=== PATIENT | female | born 1975 | race Hispanic/Latino ===

== ENCOUNTER 2017-02-28 19:17 | Emergency (ER) | payer MEDICAID ==
--- NOTE | 2017-02-28 19:39 | EDM.PDOC ---
ED HPI GENERAL MEDICAL PROBLEM - General Chief Complaint: Upper Extremity Injury/Pain Stated Complaint: HAVING PAIN IN BOTH WRISTS AND HAND Time Seen by Provider: 02/28/17 19:38 - History of Present Illness INITIAL COMMENTS - FREE TEXT/NARRATIVE: 41-year-old female has a 2 day history of worsening wrist and hand pain. Patient denies any trauma she did work in awful lot at work she cannot recall any specific overwork injury that aggravates this. She has not fallen or tripped or done any heavy lifting. She denies any other problems she is not having any neck pain she does not have pain comes down from her neck into her arms or vice versa. She gets some vague generalized tingling in her hands but these seem to be globally across the hand she cannot differentiate if it's worse on the radial aspect of the ulnar aspect. bilateral forearms/wrists Pain Score (Numeric/FACES): 7 - Related Data Allergies Allergy/AdvReac Type Severity Reaction Status Date / Time No Known Allergies Allergy Verified 02/28/17 19:34 Home Meds: Home Meds Naproxen [Naprosyn] 500 mg PO Q12HR #20 tablet 02/28/17 [Rx] Omeprazole Magnesium [Prilosec Otc] 20 mg PO DAILY 02/28/17 [History] Past Medical History - Past Health History Medical/Surgical History: Denies Medical/Surgical History - Past Surgical History Female Surgical History: Reports: Section Social & Family History - Family History Family Medical History: Noncontributory - Tobacco Use Smoking Status *Q: Never Smoker - Caffeine Use Caffeine Use: Reports: Coffee, Soda - Recreational Drug Use Recreational Drug Use: No Review of Systems - Review of Systems Review Of Systems: See Below Constitutional: Reports: No Symptoms Eyes: Reports: No Symptoms Ears: Reports: No Symptoms Nose: Reports: No Symptoms Mouth/Throat: Reports: No Symptoms Respiratory: Reports: Cough Cardiovascular: Reports: No Symptoms GI/Abdominal: Reports: No Symptoms ED EXAM, GENERAL - Physical Exam Exam: See Below Exam Limited By: No Limitations General Appearance: Alert, No Apparent Distress Head: Atraumatic, Normocephalic Neck: Normal Inspection, Supple, Non-Tender, Full Range of Motion. No: Lymphadenopathy (L), Lymphadenopathy (R) Respiratory/Chest: No Respiratory Distress, Lungs Clear, Normal Breath Sounds Cardiovascular: Normal Peripheral Pulses, Regular Rate, Rhythm, No Edema Back Exam: Normal Inspection. No: CVA Tenderness (L), CVA Tenderness (R), Muscle Spasm, Vertebral Tenderness Extremities: Normal Inspection, No Pedal Edema, Other (Upper extremities are examined in detail neurovascular status of the hand is entirely normal Tinel's sign is negative bilaterally Phalen's and reverse Phalen's is negative bilaterally patient has vague discomfort almost like a mild tendinitis using various muscle groups.) Course - Vital Signs Last Recorded V/S: Last Vital Signs Temp 36.6 C 02/28/17 19:28 Pulse 71 02/28/17 19:28 Resp 18 02/28/17 19:28 BP 152/87 H 02/28/17 19:28 Pulse Ox 99 02/28/17 19:28 - Orders/Labs/Meds Orders: Active Orders 24 hr Category Date Time Status Durable Medical Equipment for Discharge [DME for Oth 02/28/17 19:50 Ordered Discharge] [COMM] Stat - Re-Assessments/Exams Free Text/Narrative Re-Assessment/Exam: 02/28/17 19:58 Exam is somewhat confusing Tinel's sign is negative bilaterally reversed Phalen' s and Phalen's is negative bilaterally. She has point tenderness over the ulnar nerve at the elbow bilaterally but does not seem to have tenderness or numbness the patient cannot recall a specific overuse or specific lifting injury that may have caused this. 02/28/17 20:00 Patient was placed in forearm splints that immobilize the wrist and she feels much better. These will be continued she'll be started on Naprosyn. Departure - Departure Time of Disposition: 20:04 Disposition: Home, Self-Care 01 Clinical Impression: Wrist tendonitis, Hand tendinitis - Discharge Information Prescriptions: Naproxen [Naprosyn] 500 mg PO Q12HR #20 tablet Referrals: Genoveva Samuel PA-C [Primary Care Provider] - Forms: ED Department Discharge - My Orders Last 24 Hours: My Active Orders 02/28/17 19:50 Durable Medical Equipment for Discharge [DME for Discharge] [COMM] Stat - Assessment/Plan Last 24 Hours: My Active Orders 02/28/17 19:50 Durable Medical Equipment for Discharge [DME for Discharge] [COMM] Stat
== END 2017-02-28 20:15 | disposition home or self-care (01) ==
LOC: JD.ED 19:17
DX: M65.841 Other synovitis and tenosynovitis, right hand (principal); M65.842 Other synovitis and tenosynovitis, left hand; Z79.899 Other long term (current) drug therapy
CPT/HCPCS: 99283

== ENCOUNTER 2017-03-31 08:59 | Day surgery (SDC) | payer MEDICAID ==
[~2017-03-31 08:59] MED LIST: Lactated Ringers 1,000 ML IV SCH; Lidocaine 1%/Sod Bicarbonate in NS 8.4% 1 ML Syringe IV PRN; Sodium Chloride 0.9% 10 ML Syringe FLUSH PRN
--- NOTE | 2017-03-31 09:25 | PCM.PREANE ---
Preanesthetic Assessment - Anesthesia/Transfusion/Family Hx Anesthesia History: Prior Anesthesia Without Reaction Family History of Anesthesia Reaction: No Transfusion History: No Prior Transfusion(s) - Review of Systems General: No Symptoms Pulmonary: No Symptoms Cardiovascular: No Symptoms Gastrointestinal: No Symptoms Neurological: No Symptoms Other: Reports: None - Physical Assessment NPO Status Date: 03/30/17 NPO Status Time: 00:00 Pulse: 72 O2 Sat by Pulse Oximetry: 94 Respiratory Rate: 16 Blood Pressure: 129/72 Temperature: 36.2 C Height: 1.63 m Weight: 110.994 kg ASA Class: 2 Mental Status: Alert & Oriented x3 Airway Class: Mallampati = 1 Dentition: Reports: Normal Dentition Thyro-Mental Finger Breadths: 3 Mouth Opening Finger Breadths: 3 ROM/Head Extension: Full Lungs: Clear to Auscultation, Normal Respiratory Effort Cardiovascular: Regular Rate, Regular Rhythm - Lab Values: Laboratory Last Values Urine HCG, Qual Negative (NEGATIVE) 03/31/17 09:05 - Allergies Allergies/Adverse Reactions: Allergies Allergy/AdvReac Type Severity Reaction Status Date / Time No Known Allergies Allergy Verified 03/30/17 14:48 - Acknowledgements Anesthesia Type Planned: General Anesthesia Pt an Appropriate Candidate for the Planned Anesthesia: Yes Alternatives and Risks of Anesthesia Discussed w Pt/Guardian: Yes Pt/Guardian Understands and Agrees with Anesthesia Plan: Yes PreAnesthesia Questionnaire - Past Health History Medical/Surgical History: Denies Medical/Surgical History HEENT History: Reports: Impaired Vision, Other (See Below) Other HEENT History: pharyngitis, wears glasses Cardiovascular History: Reports: None Respiratory History: Reports: Other (See Below) Other Respiratory History: acute bronchitits Gastrointestinal History: Reports: None Genitourinary History: Reports: None 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) Other OB/BYN History: irregular menses, menorrhagia, metrohaggia, vaginal discharge Musculoskeletal History: Reports: Other (See Below) Other Musculoskeletal History: bilateral carpal tunnel syndrome, plantar fasciitis, wrist pain Neurological History: Reports: Other (See Below) Other Neuro History: finger numbness Psychiatric History: Reports: Depression Endocrine/Metabolic History: Reports: None Hematologic History: Reports: Anemia Immunologic History: Reports: None Oncologic (Cancer) History: Reports: None Dermatologic History: Reports: Other (See Below) Other Dermatologic History: candidal dermatitis, pruritis, skin tag, neck nodule - Past Surgical History Head Surgeries/Procedures: Reports: None HEENT Surgical History: Reports: None Cardiovascular Surgical History: Reports: None Respiratory Surgical History: Reports: None GI Surgical History: Reports: None Female Surgical History: Reports: Section, Tubal Ligation Male Surgical History: Reports: None Endocrine Surgical History: Reports: None Oncologic Surgical History: Reports: None - SUBSTANCE USE Smoking Status *Q: Former Smoker Tobacco Use Within Last Twelve Months: No Second Hand Smoke Exposure: No Days Per Week of Alcohol Use: 0 Number of Drinks Per Day: 1 Total Drinks Per Week: 0 Recreational Drug Use History: No - HOME MEDS Home Medications: Home Meds Ascorbate Calcium [Vitamin C] 500 mg PO DAILY 03/30/17 [History] Clindamycin Phos/Benzoyl Perox [Clinda-Benzoyl Perox 1-5% Pump] 1 dose TOP TID 03/30/17 [History] Ferrous Sulfate [Iron] 325 mg PO BID 03/30/17 [History] Hydrocodone/Acetaminophen [Hydrocodon-Acetaminophen 5-325] 1 tab PO Q6H PRN 10/07 [History] Naproxen [Naproxen] 500 mg PO BID PRN 03/30/17 [History] Pyridoxine HCl [Vitamin B-6] 100 mg PO DAILY 03/30/17 [History] hydrOXYzine HCl [hydrOXYzine] 25 mg PO QID PRN 03/30/17 [History] - CURRENT (IN HOUSE) MEDS Current Meds: Current Medications Lactated Ringer's (Ringers, Lactated) 1,000 mls @ 125 mls/hr IV ASDIRECTED CASTILLO Stop: 03/31/17 23:00 Lidocaine/Sodium Bicarbonate (Buffered Lidocaine 1% In Ns 8.4%) 0.25 ml IV ONETIME PRN PRN Reason: Prior to IV Start Stop: 03/31/17 18:00 Sodium Chloride (Saline Flush) 10 ml FLUSH ASDIRECTED PRN PRN Reason: Keep Vein Open Stop: 03/31/17 18:00
[2017-03-31] MEDS ORDERED: Ondansetron 4 MG/2 ML SDV ONE (09:38)
[2017-03-31] MEDS ORDERED: fentaNYL 100 MCG/2 ML SDV ONE (09:39)
[2017-03-31] MEDS ORDERED: Lidocaine 1% 4 ML ONE (09:39)
[2017-03-31] MEDS ORDERED: Propofol 200 MG/20 ML SDV ONE (09:39)
[2017-03-31] MEDS ORDERED: Midazolam 1 MG/ML 2 ML SDV ONE (09:39)
[2017-03-31] MEDS ORDERED: ceFAZolin 1 GM Vial ONE (09:40)
[2017-03-31] MEDS ORDERED: Lactated Ringers 1,000 ML ONE (10:06)
[2017-03-31] MEDS ORDERED: Ketorolac 30 MG/ML SDV ONE (10:11)
--- NOTE | 2017-03-31 10:32 | PCM.OPNOTE ---
- General Post-Op/Procedure Note Date of Surgery/Procedure: 03/31/17 Operative Procedure(s): Dilatation and curettage hysteroscopy 96224. Endometrial ablation 50115 Pre Op Diagnosis: Menorrhagia, metromenorrhagia, irregular menses Post-Op Diagnosis: Same Anesthesia Technique: General ET Tube Primary Surgeon: Uche Poon Anesthesia Provider: Casey Mccray Shipyard Painter Apprentice: Arnaldo North (PAS) Fluid Replacement, Intraop: 1,000 Output, Urine Amount: 0 EBL in mLs: 10 Drain/Tube Comments:: None Complications: None Condition: Good Free Text/Narrative:: Patient was transported to operating room #1 in [facility]. Placed under general anesthesia with endotracheal intubation the low dorsal lithotomy position. SCDs in place and functioning prior surgery. Ancef 2 g given intravenously prior surgery. Timeout performed confirming name, date of , procedure as D&C hysteroscopy and endometrial ablation. Examination under anesthesia revealed anterior uterus no adnexal masses uterus upper limits normal-sized to 4 weeks size. Uterus sounded to 9 cm. Endometrial cavity length 6.5-7 cm. Hysteroscopy performed and significant amount of tissue was indicated at hysteroscopy dilatation and curettage performed and approximately 3-5 mL of tissue obtained sent to pathology for tissue evaluation. The ablation was performed with length of the cavity 6.5 cm with 4.7 cm power 168 length of burn 49 seconds. Reinspection of the endometrial cavity after the ablation showed normal amount of charring with one or 2 areas of pinker tissue indicating less degree of burn patient may continue to have some bleeding after the ablation, depending upon amount of bleeding that she has as indication of further additional surgery be indicated. Patient was transported postanesthesia care unit in satisfactory condition. No blood transfusions were required. One sheet of images taken image 001 shows the right cornua image 002 shows left cornea image 003 post ablation central portion of the endometrial cavity image 004 is blurred that tissue blocking the camera image 005 shows the fundus of the endometrial cavity image 006 shows area of slightly less charring consistent with possible continued bleeding post-ablation the amount will be determined. I talked with her and all questions answered voiced satisfaction.
[2017-03-31] MEDS ORDERED: fentaNYL 100 MCG/2 ML SDV IVPUSH PRN (10:35)
[2017-03-31] MEDS ORDERED: HYDROmorphone 0.5 MG/0.5 ML Syringe IVPUSH PRN (10:35)
--- NOTE | 2017-03-31 10:37 | PCM.POSTAN ---
POST ANESTHESIA ASSESSMENT - MENTAL STATUS Mental Status: Alert, Oriented - VITAL SIGNS Pulse Rate: 86 SaO2: 97 Resp Rate: 20 Blood Pressure: 116/66 Temperature: 36.1 C - RESPIRATORY Respiratory Status: Respiratory Rate WNL, Airway Patent, O2 Saturation Stable, Supplemental Oxygen - CARDIOVASCULAR CV Status: Pulse Rate WNL, Blood Pressure Stable - GASTROINTESTINAL GI Status: No Symptoms - PAIN Pain Score: 0 - POST OP HYDRATION Hydration Status: Adequate & Stable - OBSERVATIONS Free Text/Narrative:: no anesthesia complications noted
== END 2017-03-31 12:20 | disposition home or self-care (01) ==
LOC: JD.SDS 08:59
PROVIDERS: ATTEND Obstetrics & Gynecology
DX: N92.1 Excessive and frequent menstruation with irregular cycle (principal); N92.0 Excessive and frequent menstruation with regular cycle; D64.9 Anemia, unspecified; B37.2 Candidiasis of skin and nail; F32.9 Major depressive disorder, single episode, unspecified; R22.1 Localized swelling, mass and lump, neck; L29.9 Pruritus, unspecified; L91.8 Other hypertrophic disorders of the skin; N89.8 Other specified noninflammatory disorders of vagina; Z98.51 Tubal ligation status; Z79.899 Other long term (current) drug therapy; Z87.891 Personal history of nicotine dependence
CPT/HCPCS: 36415; 58563; 81025; 85025; J0690; J1885; J2250; J2405; J3010; J7120; 00952; J2001; J2704

== ENCOUNTER 2020-11-20 08:11 | Day surgery (SDC) | payer BC ==
--- NOTE | 2020-10-27 09:09 | PCM.EKG ---
#1 Interpretation EKG Date: 10/22/20 Time: 16:00 Rhythm: NSR Rate (Beats/Min): 64 [place]: Normal P-Wave: Present QRS: Normal ST-T: Other (Nonspecific T wave flattening in lead III and aVF) QT: Normal EKG Interpretation Comments: Essentially normal ECG
[~2020-11-20 08:11] MED LIST changes: +Bupivacaine 0.5% 30 ML SDV ONE; +Lidocaine 1% with EPINEPHrine 1:100,000 10 ML MDV ONE; +Lidocaine 1%/Sod Bicarbonate in NS 8.4% 1 ML Syringe IDERM PRN; -Lidocaine 1%/Sod Bicarbonate in NS 8.4% 1 ML Syringe IV PRN; +Sodium Chloride 0.9% 50 ML SDV ONE
--- NOTE | 2020-11-20 08:31 | PCM.PREANE ---
Preanesthetic Assessment - Procedure Proposed Procedure: Laparoscopic assisted vaginal hysterectomy with bilateral salpingectomy, possible total abdominal hysterectomy - Anesthesia/Transfusion/Family Hx Anesthesia History: Prior Anesthesia Without Reaction Family History of Anesthesia Reaction: No Transfusion History: No Prior Transfusion(s) - Review of Systems General: No Symptoms Pulmonary: No Symptoms, Other (Patient 10/29/20 was diagnosed with penumonia and took a z-pack at that time. Lungs decreased in all coates due to obesity but lungs sound clear. Pre-op albuterol neb given. Patient stated she has seasonal allergies occasionally. ) Cardiovascular: No Symptoms Gastrointestinal: No Symptoms Neurological: Numbness (bilateral fingers), Tingling Other: Reports: Easy Bruising - Physical Assessment NPO Status Date: 11/19/20 NPO Status Time: 20:30 Vital Signs: 130/71 HR 84 RR 18 99% RA 97.8 Height: 1.63 m Weight: 106.9 kg ASA Class: 3 Mental Status: Alert & Oriented x3 Airway Class: Mallampati = 3 Dentition: Reports: Missing Tooth/Teeth Thyro-Mental Finger Breadths: 3 Mouth Opening Finger Breadths: 3 ROM/Head Extension: Full Lungs: Clear to Auscultation, Normal Respiratory Effort Cardiovascular: Regular Rate, Regular Rhythm, No Murmurs - Lab Values: Labs reviewed and okay to proceed with procedure - Imaging/EKG Impressions: 10/29/20: indication cough, nothing acute seen on chest x-ray EKG reviewed NSR HR 64, see report - Allergies Allergies/Adverse Reactions: Allergies Allergy/AdvReac Type Severity Reaction Status Date / Time No Known Allergies Allergy Verified 03/31/17 09:45 - Anesthesia Plan Pre-Op Medication Ordered: Other (Albuterol) - Acknowledgements Anesthesia Type Planned: General Anesthesia Pt an Appropriate Candidate for the Planned Anesthesia: Yes Alternatives and Risks of Anesthesia Discussed w Pt/Guardian: Yes Pt/Guardian Understands and Agrees with Anesthesia Plan: Yes PreAnesthesia Questionnaire - Past Health History Medical/Surgical History: Denies Medical/Surgical History HEENT History: Reports: Allergic Rhinitis, Impaired Vision, Other (See Below) Other HEENT History: pharyngitis, wears glasses Cardiovascular History: Reports: None Respiratory History: Reports: Asthma, Other (See Below) Other Respiratory History: acute bronchitits and bronchospasm; presented to clinic with cold like symptoms, started 10/27/20; chest xray showed nothing acute on 10/29/20 Gastrointestinal History: Reports: GERD Genitourinary History: Reports: None 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) Other OB/BYN History: irregular menses, menorrhagia, metrohaggia, vaginal discharge Musculoskeletal History: Reports: RA, Other (See Below) Other Musculoskeletal History: bilateral carpal tunnel syndrome, plantar fasciitis, wrist pain, chronic ankle pain Neurological History: Reports: Other (See Below) Other Neuro History: finger numbness and hands bilaterally Psychiatric History: Reports: Depression Endocrine/Metabolic History: Reports: Obesity/BMI 30+ Hematologic History: Reports: Anemia Immunologic History: Reports: None Oncologic (Cancer) History: Reports: None Dermatologic History: Reports: Other (See Below) Other Dermatologic History: candidal dermatitis, pruritis, skin tag, neck nodule - Past Surgical History Female Surgical History: Reports: Section, D&C, Endometrial Ablation, Tubal Ligation - SUBSTANCE USE Tobacco Use Status *Q: Former Tobacco User (Quit 2005) Tobacco Use Within Last Twelve Months: No Second Hand Smoke Exposure: Yes Days Per Week of Alcohol Use: 0 Number of Drinks Per Day: 0 Total Drinks Per Week: 0 Recreational Drug Use History: No - HOME MEDS Home Medications: Home Meds Ascorbate Calcium [Vitamin C] 500 mg PO DAILY 03/30/17 [History] Clindamycin Phos/Benzoyl Perox [Clindamycin-Bnz Perox 1-5% [employer] [facility] Manager] 1 dose TOP TID 03/30/17 [History] Ferrous Sulfate [Iron] 325 mg PO BID 03/30/17 [History] Hydrocodone/Acetaminophen [HYDROcodone-Acetaminophen 5-325 MG] 1 tab PO Q6H PRN 03/30/17 [History] Naproxen 500 mg PO BID PRN 03/30/17 [History] Pyridoxine HCl (Vitamin B6) [Vitamin B-6] 100 mg PO DAILY 03/30/17 [History] hydrOXYzine HCL [hydrOXYzine] 25 mg PO QID PRN 03/30/17 [History] Acetaminophen [Tylenol] 650 mg PO Q6H #50 cup 03/31/17 [Rx] Ibuprofen [Motrin] 600 mg PO Q6H PRN #50 tab 03/31/17 [Rx] - CURRENT (IN HOUSE) MEDS Current Meds: Current Medications Lactated Ringer's (Ringers, Lactated) 1,000 mls @ 125 mls/hr IV ASDIRECTED CASTILLO Stop: 11/20/20 23:00 Lidocaine/Sodium Bicarbonate (Lidocaine 1%/Sod Bicarbonate In Ns 8.4% 1 Ml Syringe) 0.25 ml IDERM ONETIME PRN PRN Reason: Prior to IV Start Stop: 11/20/20 18:00 Sodium Chloride (Sodium Chloride 0.9% 10 Ml Syringe) 10 ml FLUSH ASDIRECTED PRN PRN Reason: Keep Vein Open Stop: 11/20/20 18:00 Discontinued Medications Bupivacaine HCl (Bupivacaine 0.5% 30 Ml Sdv) Confirm Administered Dose 30 ml .ROUTE .STK-MED ONE Stop: 11/20/20 07:49 Lidocaine/Epinephrine (Lidocaine 1% With Epinephrine 1:100,000 10 Ml Mdv) Confirm Administered Dose 10 ml .ROUTE .STK-MED ONE Stop: 11/20/20 07:49 Sodium Chloride (Sodium Chloride 0.9% 50 Ml Sdv) Confirm Administered Dose 50 ml .ROUTE .STK-MED ONE Stop: 11/20/20 07:49
[2020-11-20] MEDS ORDERED: Ondansetron 4 MG/2 ML SDV ONE (08:33)
[2020-11-20] MEDS ORDERED: Lactated Ringers 1,000 ML ONE (08:33)
[2020-11-20] MEDS ORDERED: ceFAZolin 1 GM Vial ONE (08:33)
[2020-11-20] MEDS ORDERED: Dexamethasone 4 MG/ML 5 ML MDV ONE (08:33)
[2020-11-20] MEDS ORDERED: Ketorolac 30 MG/ML SDV ONE (08:33)
[2020-11-20] MEDS ORDERED: Midazolam 1 MG/ML 2 ML SDV ONE (08:34)
[2020-11-20] MEDS ORDERED: Propofol 200 MG/20 ML SDV ONE (08:34)
[2020-11-20] MEDS ORDERED: fentaNYL 250 MCG/5 ML SDV ONE (08:34)
[2020-11-20] MEDS ORDERED: HYDROmorphone 0.5 MG/0.5 ML Syringe ONE ×2 (08:34→11:40)
[2020-11-20] MEDS ORDERED: Albuterol 0.083% 2.5 MG/3 ML Neb Soln NEB ONE (10:00)
[2020-11-20] MEDS ORDERED: Albuterol 0.083% 2.5 MG/3 ML Neb Soln NEB PRN (10:24)
[2020-11-20] MEDS ORDERED: diphenhydrAMINE 50 MG/ML SDV IVPUSH PRN (10:24)
[2020-11-20] MEDS ORDERED: ePHEDrine 50 MG/ML SDV IVPUSH PRN (10:24)
[2020-11-20] MEDS ORDERED: Ondansetron 4 MG/2 ML SDV IVPUSH PRN (10:24)
[2020-11-20] MEDS ORDERED: HYDROmorphone 0.5 MG/0.5 ML Syringe IVPUSH PRN (10:24)
[2020-11-20] MEDS ORDERED: ePHEDrine 50 MG/ML SDV ONE (11:15)
[2020-11-20] MEDS ORDERED: fentaNYL 100 MCG/2 ML SDV ONE (11:43)
--- NOTE | 2020-11-20 11:48 | PCM.OPNOTE ---
- General Post-Op/Procedure Note Date of Surgery/Procedure: 11/20/20 Operative Procedure(s): Laparoscopic assisted vaginal hysterectomy with bilateral salpingectomy, cystoscopy Findings: Grossly normal-appearing uterus and bilateral ovaries. Bilateral fallopian tubes overall normal in appearance with surgically absent portion in the midportion of the fallopian tubes from previous tubal ligation. Grossly normal- appearing visualized portions of the intestines and liver. Bilateral ureteral j etting noted on cystoscopy Pre Op Diagnosis: Abnormal uterine bleeding, menorrhagia, history of endometrial ablation Post-Op Diagnosis: Same Anesthesia Technique: General ET Tube Primary Surgeon: Srini Williamson Anesthesia Provider: Sujey Deutsch Mirror Installer: Stephon Clancy Reason Mirror Installer Was Necessary: Patient safety and reduction of morbidity and mortality Role of Mirror Installer: Use of laparoscopic instruments during portions of the case and retraction for visualization Pathology: Uterus, cervix and bilateral fallopian tubes Fluid Replacement, Intraop: 1,400 Output, Urine Amount: 175 EBL in mLs: 50 Complications: None Condition: Good Free Text/Narrative:: The patient was seen in the preoperative holding area and risks, benefits, indications, and alternatives of the procedure were reviewed with the patient a nd she desired to proceed with a laparoscopic assisted vaginal hysterectomy, bilateral salpingectomy, possible unilateral or bilateral salpingo-oophorectomy and possible total abdominal hysterectomy. Consents were reviewed. The patient was taken back to the OR and given general anesthesia with an endotracheal tube which was placed without difficulty. She was placed in dorsal lithotomy position using Yellofin stirrups. She was prepped and draped in normal sterile fashion. A Lovelace catheter was placed without difficulty. Attention was then turned to her umbilicus and it was injected with 0.5% Marcaine and a 5 mm stab incision was made with a scalpel and a Veress needle was then inserted through the incision. The gas was turned on, with an opening pressure of 6 mmHg. Pneumoperitoneum was continued until 15 mmHg pressure. A 5 mm trocar was then inserted under direct visualization through the incision without difficulty. Attention was then turned to the patient's right lower quadrant where an avascular space approximately long-term between the ASIS and the umbilicus was identified. Local anesthetic was injected and a 5 mm incision was made with a scalpel. A 5 mm trocar was then inserted under direct visualization of the laparoscope. Attention was then turned to the left lower quadrant, where again an avascular portion of the abdominal wall was identified approximately long-term between the ASIS and the umbilicus. Local anesthetic was injected and a scalpel was used to make a 5 mm incision. A 5 mm trocar was inserted under direct visualization with the laparoscope. Attention was then turned to the pelvis where the uterus was visualized and noted be normal in appearance with normal-appearing bilateral ovaries. The bilateral fallopian tubes were overall normal in appearance with midportion that was surgically absent from previous tubal ligation procedure. The atraumatic grasper was then removed from the right lower trocar and a Enseal vessel sealing device was introduced and was used to transect the distal portion of the right fallopian tube. This tubal segment was then removed from the abdomen through the 5 mm trocar and sent for pathology. The right round ligament was then transected using the Enseal vessel sealing device. The utero-ovarian ligament was then transected using the Enseal vessel sealing device. The right side of the uterus and broad ligament were then transected using the Enseal vessel sealing device until the level of the uterovesical peritoneal reflection. A bladder flap was created using the Enseal vessel sealing device this was repeated on the patient's left side. The distal portion of the left fallopian tube was transected from the mesosalpinx using the Enseal vessel sealing device. This tubal segment was then removed through the 5 mm trocar and sent for pathology. The left round ligament and utero-ovarian ligament were then transected using Enseal vessel sealing device. The left round ligament was transected using Enseal vessel sealing device and the broad ligament was transected to the level of the uterovesical peritoneal reflection. The pelvis was then inspected for hemostasis at this time and hemostasis was not ed. All instruments were removed from the abdomen. Attention was then turned to the patient's perineum where a weighted speculum was placed into the vagina and a [place] retractor was used to visualize the cervix. The cervix was grasped with a double-tooth tenaculum. The cervical reflection point was then injected circumferentially with 0.25% lidocaine with epinephrine. The cervix was then circumferentially incised with a scalpel. The bladder was then dissected off the pubovesical cervical fascia anteriorly with Metzenbaum scissors. The same procedure was performed posteriorly and the posterior cul-de-sac was entered sharply without difficulty using Metzenbaum scissors. At this point, an Enseal vessel sealing device was placed over the uterosacral ligaments on the patient's left side. These were cauterized and ligated with the device. This was repeated on the patient's right side. Hemostasis was assured. The cardinal ligaments were then clamped on both sides using the Enseal vessel sealing device, cauterized and transected with the device. The anterior cul-de-sac was able to be entered sharply using Metzenbaum scissors at this time. The remainder of the broad ligament on the bilateral side were then serially clamped with the Enseal vessel sealing device, cauterized and transected with the device. Excellent hemostasis was noted. The cervix and uterus was able to be delivered at this time. The posterior vaginal cuff was closed with running locked sutures of 0 Monocryl. During the repair of the posterior vaginal cuff there was noted to be an area with bleeding from the left uterine artery and this was clamped and cauterized with Enseal vessel sealing device. Hemostasis was confirmed at this time. The vaginal cuff was then closed in a horizontal fashion using running locked sutures with 0 Monocryl suture. All instruments were removed from the vagina. Attention was then turned to the abdomen where a laparoscope was inserted and was used to check for hemostasis. Hemostasis was noted at this time. The gas was then evacuated from the peritoneum and trocars removed. These were closed using 4-0 Monocryl suture. After evaluating the pelvis there was noted to be some additional surgery close to the left lateral portion of the pelvic sidewall with concern about the proximity of the surgical site to the ureter. The ureters were not able to be visualized during the laparoscopy portion of the procedure. Decision was made to perform simple cystoscopy to evaluate the ureters and bladder for possible injury. The bladder was then instilled with 220 mL of sterile saline through the Lovelace catheter and the Lovelace catheter was removed. The laparoscope was inserted and a global view of the bladder was taken. The bladder was noted to be grossly normal in appearance without any evidence of injury. The laparoscope was then used to visualize the ureteral opening on the bilateral sides. There was urine that was noted to be getting from the bilateral ureteral openings. The case was completed at this time and the laparoscope was removed from the urethra. The sterile saline was left in the bladder to assist with urination after the procedure. Dermabond was then placed over the abdominal incisions. The patient was awoken from general anesthesia and taken to the PACU for recovery in stable condition. She will be discharged to home once she is able to meet all postoperative milestones including tolerating small amount of oral intake and liquids, ambulate without difficulty, her pain controlled with oral medications and able to void without difficulty. She will follow-up in the clinic in 2 weeks or earlier as needed. Sponge, lap, needle, and instrument counts were correct x 2. Srini Williamson MD 1:44 PM 11/20/2020
--- NOTE | 2020-11-20 12:04 | PCM.POSTAN ---
POST ANESTHESIA ASSESSMENT - MENTAL STATUS Mental Status: Alert - VITAL SIGNS Vital Signs: Last Vital Signs Temp 36.6 C 11/20/20 11:49 Pulse 68 11/20/20 12:03 Resp 15 11/20/20 12:03 BP 125/70 11/20/20 12:03 Pulse Ox 94 L 11/20/20 12:03 - RESPIRATORY Respiratory Status: Respiratory Rate WNL, Airway Patent, O2 Saturation Stable, Supplemental Oxygen - CARDIOVASCULAR CV Status: Pulse Rate WNL, Blood Pressure Stable - GASTROINTESTINAL GI Status: No Symptoms - POST OP HYDRATION Hydration Status: Adequate & Stable
[2020-11-20] MEDS: fentaNYL 100 MCG/2 ML SDV IVPUSH PRN ×2 (12:16→12:31)
[2020-11-20] MEDS ORDERED: Acetaminophen/oxyCODONE 325-5 MG Tab PO SCH (13:30)
--- NOTE | 2020-11-20 15:57 | PCM48HPAN ---
Post Anesthesia Note - EVALUATION WITHIN 48HRS OF ANESTHETIC Vital Signs in Normal Range: Yes Patient Participated in Evaluation: Yes Respiratory Function Stable: Yes Airway Patent: Yes Cardiovascular Function Stable: Yes Hydration Status Stable: Yes Pain Control Satisfactory: Yes Nausea and Vomiting Control Satisfactory: Yes Mental Status Recovered: Yes Vital Signs: Last Vital Signs Temp 97.9 F 11/20/20 11:49 Pulse 59 L 11/20/20 14:30 Resp 17 11/20/20 14:30 BP 111/61 11/20/20 14:30 Pulse Ox 98 11/20/20 14:30
== END 2020-11-20 16:42 | disposition home or self-care (01) ==
LOC: JD.SDS 08:11
PROVIDERS: ATTEND Obstetrics & Gynecology
DX: D25.1 Intramural leiomyoma of uterus (principal); N80.0 Endometriosis of uterus; D26.9 Other benign neoplasm of uterus, unspecified; N80.2 Endometriosis of fallopian tube; D64.9 Anemia, unspecified; M06.9 Rheumatoid arthritis, unspecified; J20.9 Acute bronchitis, unspecified; E66.9 Obesity, unspecified; K21.9 Gastro-esophageal reflux disease without esophagitis; Z79.899 Other long term (current) drug therapy; Z98.890 Other specified postprocedural states; Z87.891 Personal history of nicotine dependence
CPT/HCPCS: 36415; 58552; 86850; 86900; 86901; A9270; J0690; J1100; J1170; J1885; J2250; J2370; J2405; J2704; J2710; J3010; J3490; J7120; 00944

== ENCOUNTER 2020-11-20 20:44 | Emergency (ER) | payer BC ==
--- NOTE | 2020-11-20 22:35 | EDM.PDOC ---
ED HPI GENERAL MEDICAL PROBLEM - General Chief Complaint: Genitourinary Problem Stated Complaint: DIFFICULTY URINATING AFTER HYSTERECTOMY Time Seen by Provider: 11/20/20 22:16 Source of Information: Reports: Patient History Limitations: Reports: No Limitations - History of Present Illness INITIAL COMMENTS - FREE TEXT/NARRATIVE: Mrs. Melendez is a very pleasant 45-year-old woman who now presents to the ED with the inability to urinate. She states that she underwent a laparoscopically assisted vaginal hysterectomy and salpingectomy earlier today. Postoperatively, she was unable to urinate, and had to be catheterized around 16:15, just before she was discharged home, recovering approximately 800 mL of urine. She states that she has not been able to urinate since, and has developed the sensation of bladder fullness and pain. Here in the ED, the patient's initial BP is found to be mildly elevated at 144/88, otherwise, she is hemodynamically stable, afebrile, saturating 99% on room air. She appears to be relatively comfortable, in no acute distress. Prior to today, the patient denies having a recent fever, chills, sore throat, ear pain, nasal or sinus congestion, cough, dyspnea, chest pain, palpitations, nausea, vomiting, constipation, diarrhea, abdominal pain, urinary symptoms, recent weight gain or weight loss, recent bloody bowel movements or black bowel movements, recent joint aches, headaches, or rashes. The patient's PCP is MARIA D Garcia. Her Parts Runner is Dr. Srini Williamson. She does not recall the name of her Pyrometer Operator in [place]. She has received 2 COVID vaccinations. Pelvic Pain Score (Numeric/FACES): 10 - Related Data Allergies Allergy/AdvReac Type Severity Reaction Status Date / Time No Known Allergies Allergy Verified 11/20/20 08:45 Home Meds: Home Meds Acetaminophen/oxyCODONE [Percocet 325-5 MG] 1 - 2 each PO Q6H PRN #30 tab 11/20/20 [Rx] Albuterol Sulfate [Albuterol Sulfate HFA] 1 puff INH ASDIRECTED PRN 11/20/20 [History] Docusate Sodium [Colace] 100 mg PO BID #60 capsule 11/20/20 [Rx] Ibuprofen 600 mg PO Q6H PRN #60 tablet 11/20/20 [Rx] Omeprazole Magnesium [Prilosec Otc] 20 mg PO DAILY 11/20/20 [History] Ondansetron [Zofran ODT] 4 mg PO Q6H PRN #30 tab.dis 11/20/20 [Rx] Past Medical History HEENT History: Reports: Allergic Rhinitis, Impaired Vision (wears glasses) Gastrointestinal History: Reports: GERD Musculoskeletal History: Reports: RA Endocrine/Metabolic History: Reports: Obesity/BMI 30+ - Past Surgical History Female Surgical History: Reports: Section (x 2), D&C (x 1), Endometrial Ablation (x 1), Hysterectomy (partial), Tubal Ligation Social & Family History - Tobacco Use Tobacco Use Status *Q: Former Tobacco User Years of Tobacco use: 8 Packs/Tins Daily: 2 Month/Year Tobacco Last Used: Quit 2005 Tobacco Use Comment: Started smoking 1997 - Caffeine Use Caffeine Use: Reports: Coffee, Soda - Alcohol Use Alcohol Use History: Yes Alcohol Use Frequency: Socially - Recreational Drug Use Recreational Drug Use: No - Living Situation & Occupation Living situation: Reports: , with Spouse, with Family (3 kids, 2 grandchildren, son-in-law) Occupation: Employed ([employer]) ED ROS GENERAL - Review of Systems Review Of Systems: Comprehensive ROS is negative, except as noted in HPI. ED EXAM, RENAL/ - Physical Exam Exam: See Below Exam Limited By: No Limitations General Appearance: Alert, WD/WN, Mild Distress (appeared uncomfortable prior to placement of the Lovelace catheter) Eye Exam: Bilateral Eye: EOMI, Normal Inspection Ears: Normal External Exam, Hearing Grossly Normal Nose: Normal Inspection Throat/Mouth: Normal Inspection, Normal Lips, Normal Voice, No Airway Compromise Head: Atraumatic, Normocephalic Neck: Normal Inspection, Full Range of Motion Respiratory/Chest: No Respiratory Distress, Lungs Clear, Normal Breath Sounds, No Accessory Muscle Use Cardiovascular: Normal Peripheral Pulses, Regular Rate, Rhythm, No Gallop, No JVD, No Murmur, No Rub GI/Abdominal: Normal Bowel Sounds, Soft, No Organomegaly, No Distention, No Abnormal Bruit, No Mass, Tender (About the laparoscopic wounds, which appear to be clean, dry, and intact, and suprapubically. Nontender elsewhere.) Extremities: Normal Inspection, Normal Range of Motion, Normal Capillary Refill Neurological: Alert, Oriented, Normal Cognition, No Motor/Sensory Deficits Psychiatric: Normal Affect Skin Exam: Warm, Dry, Intact, Normal Color, No Rash Course - Vital Signs Last Recorded V/S: Last Vital Signs Temp 36.7 C 11/20/20 22:14 Pulse 69 11/20/20 22:14 Resp 18 11/20/20 22:14 BP 144/88 H 11/20/20 22:14 Pulse Ox 99 11/20/20 22:14 - Orders/Labs/Meds Orders: Active Orders 24 hr Category Date Time Status Lovelace Catheter Insertion [Insert Urinary Catheter] [OM. Care 11/20/20 22:30 Ordered PC] Q24H Meds: Medications Discontinued Medications Generic Name Dose Route Start Last Admin Trade Name Candice PRN Reason Stop Dose Admin Hydrocodone Bitart/Acetaminophen 2 tab 11/20/20 23:07 11/20/20 23:18 Acetaminophen/Hydrocodone 325-5 Mg Tab PO 11/20/20 23:08 2 tab ONETIME ONE Administration Influenza Virus Vaccine 1 each 11/20/20 22:35 Pharmacy To Dose - Influenza Vaccine IM 11/20/20 22:36 ONETIME ONE Influenza Virus Vaccine 60 mcg 11/20/20 22:45 11/20/20 23:19 Flu Vacc [id number](6mos Up)/Pf 60 Mcg/0.5 Ml Syringe IM 11/20/20 22:46 60 mcg .ONCE ONE Administration - Re-Assessments/Exams Free Text/Narrative Re-Assessment/Exam: 11/20/20 22:30 Purvi AGUIAR placed a Lovelace catheter, and the patient is currently draining clear darryl urine. If she drains more than 300 mL of urine, we will leave the Lovelace catheter in place and attach it to a leg bag. If she drains less than 300 mL, we will remove the catheter. 11/20/20 22:37 Notified by Purvi AGUIAR that she recovered >400 ml of urine. A leg bag will be attached. I will have the patient follow-up with Dr. Williamson on Monday. Departure - Departure Time of Disposition: 22:42 Disposition: Home, Self-Care 01 Condition: Good Clinical Impression: Postoperative urinary retention - Discharge Information *PRESCRIPTION DRUG MONITORING PROGRAM REVIEWED*: Not Applicable *COPY OF PRESCRIPTION DRUG MONITORING REPORT IN PATIENT JOSÉ: Not Applicable Instructions: Acute Urinary Retention, Female, [id number] Referrals: Srini Williamson MD [Primary Care Provider] - Genoveva Samuel PA-C [Physician Field Support Engineer] - Forms: ED Department Discharge Additional Instructions: You were seen in the emergency room for the inability to urinate following a laparoscopic assisted vaginal hysterectomy this morning. A Lovelace catheter was placed in the ER, recovery more than 400 mL of urine. The Lovelace catheter was attached to a leg bag. Drain the leg bag every few hours, as instructed by your nurse. Make sure that the bag is below your body height when you sleep, so that urine does not backflow into your bladder. Please follow-up with your Parts Runner, Dr. Srini Williamson, this coming 11/23/2020. If any other problems, please do not hesitate to return to the ER. Sepsis Event Note (ED) - Focused Exam Vital Signs: Vital Signs Temp Pulse Resp BP Pulse Ox 11/20/20 22:14 36.7 C 69 18 144/88 H 99 - My Orders Last 24 Hours: My Active Orders 11/20/20 22:30 Lovelace Catheter Insertion [Insert Urinary Catheter] [OM.PC] Q24H - Assessment/Plan Last 24 Hours: My Active Orders 11/20/20 22:30 Lovelace Catheter Insertion [Insert Urinary Catheter] [OM.PC] Q24H
[2020-11-20] MEDS ORDERED: Acetaminophen/HYDROcodone 325-5 MG Tab PO ONE (23:07)
== END 2020-11-20 23:23 | disposition home or self-care (01) ==
LOC: JD.ED 20:44
DX: R33.9 Retention of urine, unspecified (principal); K21.9 Gastro-esophageal reflux disease without esophagitis; E66.9 Obesity, unspecified; Z87.891 Personal history of nicotine dependence; Z23 Encounter for immunization; Z68.41 Body mass index [BMI] 40.0-44.9, adult
CPT/HCPCS: 51702; 90686; 99283-25; A9270-GY; G0008